=== PATIENT | male | born 1960 | race Caucasian/White ===

== ENCOUNTER 2016-09-24 20:02 | Emergency (ER) | payer OTHER ==
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
--- NOTE | 2016-09-25 02:19 | ED MAR SUMMARY ---
..... Medication Administration Record [facility] [address] [place], [place] [id number] Patient: FLORA LOVELL Visit ID: [id number] 56y, M Weight: 92.9 kg Height/Length: 72 in BMI: 27.8 ALLERGIES: No Known Drug Allergy
--- NOTE | 2016-09-25 02:19 | ED MED RECONCILIATION SUMMARY ---
Patient: FLORA LOVELL Medication Reconciliation Report [facility] VisitID: [id number] [address] [place] [address] 56y, M Registration Date/Time: 09/24/2016 Weight: 92.9 kg Height/Length: 72 in. BMI: 27.8 ALLERGIES: No Known Drug Allergy The patient's Home Medications are listed below: NONE. The source(s) of the original Home Medication information: patient The following Medications were given to the patient in the Emergency Department: None. The following Medications were prescribed to the patient: Naproxen 500 mg tablets: take 1 orally every 12 hours as needed for pain. Dispense twenty (20). No refills. -- Raquel Santos A.R.NTovaP. Flexeril 10 mg: Take 1 orally every 8 hours as needed for muscle spasm. Dispense twenty (20). No refills. Substitution is permissible. -- Raquel Santos A.R.NTovaP.
--- NOTE | 2016-09-25 02:19 | ED MED RECONCILIATION SUMMARY ---
Patient: FLORA LOVELL Medication Reconciliation Report [facility] VisitID: [id number] [address] [place] [address] 56y, M Registration Date/Time: 09/24/2016 Weight: 92.9 kg Height/Length: 72 in. BMI: 27.8 ALLERGIES: No Known Drug Allergy The patient's Home Medications are listed below: NONE. The source(s) of the original Home Medication information: patient The following Medications were given to the patient in the Emergency Department: None. The following Medications were prescribed to the patient: Naproxen 500 mg tablets: take 1 orally every 12 hours as needed for pain. Dispense twenty (20). No refills. -- Raquel Santos A.R.NTovaP. Flexeril 10 mg: Take 1 orally every 8 hours as needed for muscle spasm. Dispense twenty (20). No refills. Substitution is permissible. -- Raquel Santos A.R.NTovaP.
--- NOTE | 2016-09-25 02:19 | ED MAR SUMMARY ---
..... Medication Administration Record [facility] [address] [place] [place], [place] [id number] Patient: FLORA LOVELL Visit ID: [id number] 56y, M Weight: 92.9 kg Height/Length: 72 in BMI: 27.8 ALLERGIES: No Known Drug Allergy
== END 2016-09-24 21:30 | disposition home or self-care (01) ==
LOC: ED SRH 20:02
DX: M79.1 Myalgia (principal); V53.5XXA Driver of pick-up truck or van injured in collision with car, pick-up truck or van in traffic accident, initial encounter; Y93.I9 Activity, other involving external motion; Y92.411 Interstate highway as the place of occurrence of the external cause; Y99.9 Unspecified external cause status; I10 Essential (primary) hypertension